=== PATIENT | male | born 1975 | race Caucasian/White ===

== ENCOUNTER 2021-10-07 17:08 | Emergency (ER) | payer BC ==
[2021-10-07] MEDS ORDERED: Lidocaine 1% 30 ML SDV INJECT ONE (17:16)
[2021-10-07] MEDS ORDERED: Diphtheria,Pertussis(Acell),Tetanus Vaccine 0.5 ML Syringe IM ONE (17:32)
== END 2021-10-07 17:45 | disposition home or self-care (01) ==
LOC: VM.ED 17:08
DX: S81.832A Puncture wound without foreign body, left lower leg, initial encounter (principal); Z23 Encounter for immunization; X58.XXXA Exposure to other specified factors, initial encounter
CPT/HCPCS: 10120; 90471; 90715; 99283; 99283-25